=== PATIENT | male | born 1975 | race Asian ===

== ENCOUNTER → 2025-05-04 | Outpatient (CLI) | payer SELFPAY ==
[2025-05-04 11:00] LABS: BASOPHIL # 0.0 10^3/uL (0.0-0.1); BASOPHIL % 0.3 % (0.2-1.2); EOSINOPHIL # 0.3 10^3/uL (0.0-0.2); EOSINOPHIL % 3.3 % (0.0-5.0); HEMATOCRIT(ML) 50.7 % (37.0-53.0); IG % 0.10 % (0.00-0.50); LYMPHOCYTES # 3.91 10^3/uL1 (1.0-4.8); LYMPHOCYTES % 44.1 % (24.0-44.0); MEAN CORP HGB 29.6 pg (26-34); MEAN CORP HGB CONCENTRATION 32.0 g/dL (33-36.5); MEAN CORP VOLUME 92.5 fL (78-100); MONOCYTES # 0.5 10^3/uL (0.3-0.8); MONOCYTES % 5.7 % (5.0-12.0); NEUTROPHIL # 4.1 10^3/uL (1.8-7.7); NEUTROPHILS % 46.5 % (41.0-85.0); RED BLOOD CELL 5.48 10^6/uL (4.50-5.90); RED CELL DISTRIBUTION WIDTH 12.6 % (11.5-14.5); WHITE BLOOD CELL 8.9 10^3/uL (4.5-11.0)
[2025-05-04 11:37] LABS: ALANINE AMINOTRANSFERASE(ML) 18.0 U/L (12-78); ALBUMIN(ML) 4.1 g/dL (3.4-5.0); CREATININE SERUM 1.02 mg/dL (0.59-1.40); EST GFR, NON-AA 78.3 (>/=60); LDL/HDL RATIO 2.8
== END | disposition home or self-care (01) ==
LOC: RAD 10:18
PROVIDERS: ATTEND Nurse Practitioner Adult Health
DX: F17.200 Nicotine dependence, unspecified, uncomplicated (principal); Z12.5 Encounter for screening for malignant neoplasm of prostate; M10.9 Gout, unspecified; Z00.01 Encounter for general adult medical examination with abnormal findings
CPT/HCPCS: 36415; 71046; 80053; 80061; 83036; 84153; 84439; 84443; 84550; 85025